=== PATIENT | female | born 1940 | race Caucasian/White ===

== ENCOUNTER 2016-03-11 12:17 | Outpatient (CLI) ==
--- NOTE | 2016-03-11 12:38 | DI ---
EXAM: Chest two view, frontal and lateral views. HISTORY: Cough. COMPARISON: None available. FINDINGS: The heart size is normal. There is no pulmonary vascular congestion. The lungs are sagar r. No pleural effusion or pneumothorax is seen. No acute osseous abnormality identified. 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 IMPRESSION: No acute cardiopulmonary process.
== END 2016-03-11 12:18 | disposition home or self-care (01) ==
LOC: RAD 12:17
PROVIDERS: ATTEND Family Medicine
DX: R05 Cough (principal); R53.81 Other malaise